=== PATIENT | female | born 2005 | race Two or more races ===

== ENCOUNTER 2025-03-10 19:10 | Emergency (ER) | payer OTHER ==
[~2025-03-10] VITALS: Ht 160 cm; Wt 49.9 kg
[2025-03-10] MEDS ORDERED: ONDANSETRON 4 MG TAB.RAPDIS ONE (19:35)
[2025-03-10] MEDS: ONDANSETRON 4 MG TAB.RAPDIS SL ONE (19:40)
[2025-03-10 19:50] LABS: PLATELET COUNT (AUTO) 362 K/uL (150-450); RED BLOOD CELL COUNT(AUTO) 5.25 MIL/uL (4.0-5.2); RED CELL DISTRIBUTION WIDTH 13.4 % (11.5-15.0); WHITE BLOOD COUNT (AUTO) 9.8 K/uL (4.3-11.0)
[2025-03-10 20:20] LABS: CALCIUM, SERUM 9.1 mg/dL (8.5-10.1); CREATININE 0.6 mg/dL (0.6-1.3); SODIUM SERUM 141.0 mmol/L (136-145); UREA NITROGEN, BLOOD 10.0 mg/dL (7-18)
[2025-03-10 20:26] LABS: ASPARTATE AMINOTRANSFERASE 16.0 U/L (15-37); TOTAL PROTEIN, SERUM 8.0 g/dL (6.4-8.2)
[2025-03-10 20:59] VITALS: BP 121/68; TEMP 98.4; O2SAT 98
== END 2025-03-10 21:00 ==
LOC: ER 19:17
DX: R11.0 Nausea (principal); R53.1 Weakness; R10.20 Pelvic and perineal pain unspecified side
CPT/HCPCS: 99283; 85025; 80048; 83690; 80076; 36415; 84702; Q0162